=== PATIENT | female | born 1990 | race African-American/Black ===

== ENCOUNTER 2017-01-15 13:59 | Emergency (ER) | payer MEDICARE, MEDICAID ==
[~2017-01-15] VITALS: Ht 167.6 cm; Wt 67.0 kg
[~2017-01-15 13:59] MED LIST: ALPR0.5T96 PO; AMLO10TA4; CHOL100026 PO; CLONIDINE PO; FERR-43 PO; HYDR200T PO; PRED10TA PO
[2017-01-15 15:00] VITALS: BP 133/99
== END 2017-01-15 22:00 | disposition left against medical advice (07) ==
LOC: ER 21:36
DX: N93.9 Abnormal uterine and vaginal bleeding, unspecified (principal); R10.9 Unspecified abdominal pain; Z53.21 Procedure and treatment not carried out due to patient leaving prior to being seen by health care provider